=== PATIENT | male | born 1945 | race Caucasian/White ===

== ENCOUNTER 2016-07-07 13:03 | Inpatient (IN) | payer OTHER, MEDICARE ==
--- NOTE | 2016-07-07 13:18 | EDPHY ---
H & P Stated Complaint: Fatigue, abnomal labs-BUN/Creat. AFIB 07/06 Time Seen by Provider: 07/07/16 13:15 HPI/ROS: CHIEF COMPLAINT: Elevated creatinine HISTORY OF PRESENT ILLNESS: The patient is a 70 year old male with history of paroxysmal atrial fibrillation and hypertension, who was told to report to the emergency department by Dr. Ponce's office because of elevated creatinine today. The patient's previous creatinine was 1.3 (November 2015), today it was 3.1. The patient states he went into atrial fibrillation 2 days ago. He saw Dr. Ponce yesterday, who confirmed atrial fibrillation (the patient has a loop recorder in place). The patient received Metoprolol, which he took yesterday and this morning, with resolution of his afib. He had a recheck at Dr. Ponce's office today and was told he was no longer in atrial fibrillation. However, his lab work showed elevated creatinine. The patient notes trouble breathing recently. He was able to walk/run his usual 3 miles 2 days ago without dyspnea. Over the past month, he's noticed decreased strength and increased weakness. He denies lower extremity pain or swelling. No chest pain, cough, or nausea. Patient is anticoagulated on Eliquis. He is taking aldactone, lisinopril, and modafinil, among other medicaitons. Of note, the patient recently started a prescription drug that stimulates HGH. REVIEW OF SYSTEMS: A ten point review of systems was performed and is negative with the exception of the items mentioned in the HPI. Source: Patient - Personal History Current Tetanus/Diphtheria Vaccine: Unsure Current Tetanus Diphtheria and Acellular Pertussis (TDAP): Unsure - Medical/Surgical History Hx Asthma: No Hx Chronic Respiratory Disease: No Hx Diabetes: No Hx Cardiac Disease: Yes Hx Renal Disease: No Hx Cirrhosis: No Hx Alcoholism: No Hx HIV/AIDS: No Hx Splenectomy or Spleen Trauma: No Other PMH: 1. Hypertension. 2. Hypercholesterol. 3. Lung nodule-following by Dr. Fulton. 4. Atrial Fibrilliation, paroxysmal. 5. Sleep apnea. 6. Dyslipidemia. 7. Coronary Artery Disease, s/p cath 11/25 - Social History Smoking Status: Never smoked Additional Social History: The patient drinks a vodka drink every night. Nonsmoker. No drug use. . Works in finance. - Physical Exam Exam: General Appearance: Alert. Vital signs reviewed. HR 58-60. Eyes: Pupils equal and round, no conjunctival injection, no discharge. Anicteric. ENT, Mouth: Mucous membranes are moist, no oropharyngeal erythema or edema. Neck: No lymphadenopathy, supple. No JVD. Respiratory: Lungs are clear to auscultation; no wheezes, rales, or rhonchi. Cardiovascular: Regular rate and rhythm with distant heart sounds; no murmur, rub, or gallop. Gastrointestinal: Abdomen is soft and nontender. He has an umbilical hernia, not incarcerated. Skin: Warm and dry, no rashes on exposed skin, normal color. Back: Nontender to palpation over the thoracolumbar spine. No CVAT. Extremities: No lower extremity edema, no calf tenderness or swelling. Neurological: Alert and oriented. Moving all four extremities easily and equally. Psychiatric: Normal affect. Constitutional: Initial Vital Signs Temperature (C) 36.6 C 07/07/16 13:05 Heart Rate 58 L 07/07/16 13:05 Respiratory Rate 16 07/07/16 13:05 Blood Pressure 115/73 07/07/16 13:05 O2 Sat (%) 95 07/07/16 13:05 O2 Delivery Mode Room Air Allergies/Adverse Reactions: No Known Allergies Allergy (Verified 07/07/16 13:11) Home Medications: Medication Instructions Recorded ALPRAZolam [Xanax 0.5 MG (*)] 0.5 mg PO BID PRN 08/02/13 Fluticasone Nasal [Flonase Nasal 2 sprays EACHNARE DAILY PRN 07/12/14 [place]] Hydrocodone/Acetaminophen [[place] 1 each PO DAILY PRN 07/12/14 5/325 (*)] Atorvastatin Calcium [Lipitor 40 40 mg PO DAILY #30 tab 07/15/14 mg (*)] Amitriptyline HCl [Elavil 10 mg 10 mg PO HS 11/13/15 (*)] Carvedilol [Coreg (*)] 6.25 mg PO BIDMEAL 11/13/15 Lisinopril [Zestril 20 mg (*)] 20 mg PO DAILY 11/13/15 Tadalafil [Cialis] 20 mg PO DAILY PRN 08/03/16 Apixaban [Eliquis] 5 mg PO BID 07/07/16 Aspirin EC [Aspirin EC 81 mg (*)] 81 mg PO DAILY #0 tab 07/09/16 Medical Decision Making - Diagnostics EKG Interpretation: The 12 lead EKG was interpreted by myself. See hard copy and/or "tracemaster" electronic copy for interpretation: Sinus rhythm, first degree AV block, IVCD. Imaging: Study: X-ray of the chest was obtained. Results: NAPD, no obvious failure. Images were interpreted by the radiologist, Dr. Degroot. I viewed the images myself on the PACS system. ED Course/Re-evaluation: The patient is a 70 year old male, sent here by Dr. Duffy for elevated creatinine. The patient was recently in atrial fibrillation, this resolved after receiving metoprolol. Plan to repeat creatinine. Chest x-ray was ordered. I will check troponin as well. Repeat creatinine was 3.2. Troponin is elevated at .039. Chest x-ray is normal. 2:40 p.m.: I reevaluated the patient. He tells me he has been taking Sermorelin - GHRP6-GHRP2 intermittently since May. This is reportedly a human growth hormone stimulater. I do not know whether this medication can affect kidney function. He decreased his Lisinopril today from 2 tablets to 1 table per day, on the advice of his doctor. He is taking spironolactone. I suspect mild dehydration. He also takes aspirin, Lipitor, Coreg, ibuprofen prn and modafinil. He is taking spironolactone. I suspect mild dehydration. I think that dehydration and increase in lisinopril could explain his increased creatinine. With his recent atrial fibrillation he could have had disruption of blood flow to the kidneys. I do not find any evidence of infection. His troponin is very slightly elevated. I do not think that this represents ischemia. 3:00 p.m.: I spoke to the hospitalist, Dr. Singh, who accepts the patient for admission. Differential Diagnosis: I considered a differential diagnosis that includes but is not limited to chronic hypertension resulting in renal failure, medication effect, obstructive uropathy, acute coronary syndrome, infection and dehydration - Data Points Laboratory Results: Laboratory Results 07/07/16 13:34 07/07/16 13:34 Medications Given: Discontinued Medications Amitriptyline HCl (Elavil) 10 mg PO HS [facility] Stop: 01/03/17 20:59 Last Admin: 07/08/16 21:36 Dose: 10 mg Apixaban (Eliquis) 2.5 mg PO BID [facility] Stop: 01/05/17 10:59 Last Admin: 07/09/16 11:45 Dose: 2.5 mg Aspirin Buffered (Aspirin Ec) 81 mg PO DAILY [facility] Stop: 01/04/17 08:59 Last Admin: 07/09/16 09:14 Dose: 81 mg Atorvastatin Calcium (Lipitor) 40 mg PO DAILY [facility] Stop: 01/04/17 08:59 Last Admin: 07/09/16 09:14 Dose: 40 mg Carvedilol (Coreg) 6.25 mg PO BIDMEAL [facility] Stop: 01/03/17 17:59 Last Admin: 07/09/16 09:14 Dose: 6.25 mg Fluticasone Propionate (Flonase Nasal [place]) 2 sprays EACHNARE DAILY PRN PRN Reason: congestion Stop: 01/03/17 22:39 Last Admin: 07/08/16 21:36 Dose: 2 sprays Sodium Chloride (Ns) 500 mls @ 0 mls/hr IV ONCE ONE PRN Reason: Wide Open Stop: 07/07/16 15:49 Last Admin: 07/07/16 15:54 Dose: 500 mls Sodium Chloride (Ns) 1,000 mls @ 100 mls/hr IV CONT [facility] Stop: 01/03/17 16:44 Last Admin: 07/08/16 23:33 Dose: 1,000 mls Departure - Departure Disposition: [facility] Inpatient Acute Clinical Impression: Elevated serum creatinine Condition: Good Report Scribed for: Verna Romero Report Scribed by: Umu Kumar Date of Report: 07/07/16 Time of Report: 14:45 Physician Review and Approval Statement: 07/07/16 13:17 Portions of this note were transcribed by the medical scientific officer. I, Dr. Verna Romero, personally performed the history, physical exam, and medical decision- making; and confirmed the accuracy of the information in the transcribed note.
--- NOTE | 2016-07-07 13:23 | CPEKG ---
Heart Rate: 60 RR Interval: 1000 P-R Interval: 240 QRSD Interval: 134 QT Interval: 440 QTC Interval: 440 P [place]: 32 QRS [place]: -47 T Wave [place]: -61 EKG Severity - ABNORMAL ECG - EKG Impression: SINUS RHYTHM EKG Impression: FIRST DEGREE AV BLOCK EKG Impression: NONSPECIFIC IVCD WITH LAD Electronically Signed By: Venra Romero 07-Jul-2016 15:42:39
[2016-07-07 13:45] LABS: % IMMATURE GRANULYOCYTES 0.4 % (0.0-1.1); ABSOLUTE IMMATURE GRANULOCYTES 0.03 10^3/uL (0.00-0.10); ADD DIFF? NO; ADD MORPH? NO; ADD SCAN? NO; ATYPICAL LYMPHOCYTE FLAG 0 (0-99); FRAGMENT RBC FLAG 0 (0-99); HEMATOCRIT 41.9 % (40.0-51.0); HEMOGLOBIN 14.5 g/dL (13.7-17.5); LEFT SHIFT FLG 0 (0-99); LIPEMIA HEMOLYSIS FLAG 90 (0-99); MEAN CELL HEMOGLOBIN CONCENTR. 34.6 g/dL (32.4-36.7); MEAN CELL VOLUME 95.2 fL (81.5-99.8); MEAN PLATELET VOLUME 10.6 fL (8.7-11.7); PLATELET CLUMPS FLAG 0 (0-99); PLATELET COUNT 219 10^3/uL (150-400); RED CELL DISTRIBUTION WIDTH 12.8 % (11.5-15.2)
[2016-07-07 14:05] LABS: ANION GAP 11 mEq/L (8-16); CALCIUM 9.5 mg/dL (8.5-10.4); CARBON DIOXIDE 26 mEq/l (22-31); CHLORIDE 103 mEq/L (97-110); CREATININE 3.2 mg/dL (0.7-1.3); GLOMERULAR FILTRATION RATE 19; GLUCOSE 90 mg/dL (70-100); POTASSIUM 4.4 mEq/L (3.5-5.2); SODIUM 140 mEq/L (134-144)
[2016-07-07 14:16] LABS: TROPONIN I 0.039 ng/mL (0-0.034)
[2016-07-07] MEDS ORDERED: NS 500 ML IV ONE (15:48)
[2016-07-07] MEDS ORDERED: ALPRAZolam 0.25 MG TAB PO PRN (16:35)
[2016-07-07] MEDS ORDERED: ONDANSETRON 4 MG/2 ML VIAL IVP PRN (16:39)
[2016-07-07] MEDS ORDERED: ACETAMINOPHEN 325 MG TAB PO PRN (16:39)
[2016-07-07] MEDS: NS 1,000 ML IV SCH (16:58)
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
[2016-07-07] MEDS: CARVEDILOL 6.25 MG TAB PO SCH (18:02)
[2016-07-07] MEDS: AMITRIPTYLINE HCL 10 MG TAB PO SCH (20:11)
[2016-07-07] MEDS: FLUTICASONE NASAL 120 SPRAYS/16 GM MDI EACHNARE PRN (22:58)
[2016-07-08 05:27] LABS: % IMMATURE GRANULYOCYTES 0.4 % (0.0-1.1); ABSOLUTE IMMATURE GRANULOCYTES 0.02 10^3/uL (0.00-0.10); ADD DIFF? NO; ADD MORPH? NO; ADD SCAN? NO; ATYPICAL LYMPHOCYTE FLAG 10 (0-99); FRAGMENT RBC FLAG 0 (0-99); HEMATOCRIT 36.1 % (40.0-51.0); HEMOGLOBIN 12.2 g/dL (13.7-17.5); LEFT SHIFT FLG 0 (0-99); LIPEMIA HEMOLYSIS FLAG 90 (0-99); MEAN CELL HEMOGLOBIN 32.2 pg (27.9-34.1); MEAN CELL HEMOGLOBIN CONCENTR. 33.8 g/dL (32.4-36.7); MEAN CELL VOLUME 95.3 fL (81.5-99.8); MEAN PLATELET VOLUME 11.1 fL (8.7-11.7); PLATELET CLUMPS FLAG 10 (0-99); PLATELET COUNT 165 10^3/uL (150-400); RED BLOOD CELL COUNT 3.79 10^6/uL (4.40-6.38); RED CELL DISTRIBUTION WIDTH 12.7 % (11.5-15.2)
[2016-07-08 05:34] LABS: ANION GAP 8 mEq/L (8-16); CALCIUM 8.5 mg/dL (8.5-10.4); CARBON DIOXIDE 20 mEq/l (22-31); CHLORIDE 109 mEq/L (97-110); CHOLESTEROL 105 mg/dL (140-220); CHOLESTEROL/HDL RATIO 3.75 RATIO (1.00-4.97); CREATININE 2.3 mg/dL (0.7-1.3); GLOMERULAR FILTRATION RATE 28; GLUCOSE 86 mg/dL (70-100); HIGH DENSITY LIPOPROTEIN 28 mg/dL (40-65); LDL/HDL RATIO 1.75 RATIO (1.00-3.64); LOW DENSITY LIPOPROTEIN 49 mg/dL (80-100); NON-HIGH DENSITY LIPOPROTEIN 77 mg/dL (90-129); POTASSIUM 4.4 mEq/L (3.5-5.2); SODIUM 137 mEq/L (134-144); TRIGLYCERIDE 142 mg/dL (40-150); VERY LOW DENSITY LIPOPROTEINS 28 mg/dL (8-25)
--- NOTE | 2016-07-08 08:38 | PDCARCONS ---
Cardiology Consult Reason for Consult: History of atrial fibrillation abnormal EKG Chief Complaint: dizziness Requesting Physician: Dr Brandy Singh History of Present Illness: patient is a 70-year-old male history of paroxysmal atrial fibrillation admitted to the hospital with a rise in creatinine. I am asked by Dr. Singh to render an opinion regarding abnormal EKG, maintenance therapy for atrial fibrillation, hypertension, hyperlipidemia, and coronary artery disease. Patient has had no clinical cardiac events. He had a coronary angiogram this past year which revealed an occluded small posterior descending coronary artery fed by collaterals associated with normal left ventricular function. Diffuse luminal irregularities of the coronary tree were also identified. He has been aggressively managed with statin therapy. He has had no clinical cardiac events. In particular no history of heart failure, coronary disease, valvular heart disease. He has a history of intermittent atrial fibrillation diagnosed 3 and half years ago. He had a loop recorder placed at that time for episodes of loss of consciousness at the wheel. He was found to have paroxysmal atrial fibrillation. The most recent episode began last with an elevated heart rate. With serial monitoring he noticed a drop in blood pressure increasing in heart rate. He was seen Wednesday morning at the [facility]. He was started on amiodarone 400 mg three times daily. He converted to sinus rhythm last evening. Patient's blood pressure has been elevated. Most recently he had an increase in blood pressure medications including doubling of his lisinopril to bring his goal blood pressure down to the 120 range from 145 at baseline. On Mondays blood pressure was in the 70s. Routine metabolic assessment yesterday showed a creatinine that had doubled. And he was admitted to the hospital for further evaluation. Cardiac risk factors have included longstanding hypertension, hyperlipidemia. Patient has underlying severe obstructive and central sleep apnea managed by Dr. Hogan with CPAP. Cardiac review of systems today is negative for chest pain, shortness of breath , PND, orthopnea, syncope. He did have episode of dizziness with change in position yesterday. This morning he is feeling well. Outpatient medications: Ambulatory Orders ALPRAZolam [Xanax 0.5 MG (*)] 0.5 mg PO BID PRN 08/02/13 Fluticasone Nasal [Flonase Nasal [place]] 2 sprays EACHNARE DAILY PRN 07/12/14 Hydrocodone/Acetaminophen [[place] 5/325 (*)] 1 each PO DAILY PRN 07/12/14 Atorvastatin Calcium [Lipitor 40 mg (*)] 40 mg PO DAILY #30 tab 07/15/14 Amitriptyline HCl [Elavil 10 mg (*)] 10 mg PO HS 11/13/15 Carvedilol [Coreg (*)] 6.25 mg PO BIDMEAL 11/13/15 Lisinopril [Zestril 20 mg (*)] 20 mg PO DAILY 11/13/15 Spironolactone [Aldactone 25 MG (*)] 50 mg PO DAILY 11/13/15 Tadalafil [Cialis] 20 mg PO DAILY PRN 11/13/15 Apixaban [Eliquis] 5 mg PO BID 07/07/16 History Information - Allergies/Home Medication List Allergies/Adverse Reactions: No Known Allergies Allergy (Verified 07/07/16 13:11) Home Medications: ALPRAZolam [Xanax 0.5 MG (*)] 0.5 mg PO BID PRN 08/02/13 [Last Taken 07/06/16 21 :00] Fluticasone Nasal [Flonase Nasal [place]] 2 sprays EACHNARE DAILY PRN 07/12/14 [ Last Taken 07/06/16] Hydrocodone/Acetaminophen [[place] 5/325 (*)] 1 each PO DAILY PRN 07/12/14 [Last Taken 3 Days Ago] Amitriptyline HCl [Elavil 10 mg (*)] 10 mg PO HS 11/13/15 [Last Taken 07/06/16] Carvedilol [Coreg (*)] 6.25 mg PO BIDMEAL 11/13/15 [Last Taken 07/07/16] Lisinopril [Zestril 20 mg (*)] 20 mg PO DAILY 11/13/15 [Last Taken 07/07/16] Spironolactone [Aldactone 25 MG (*)] 50 mg PO DAILY 11/13/15 [Last Taken ] Tadalafil [Cialis] 20 mg PO DAILY PRN 11/13/15 [Last Taken 11/12/15 22:00] Apixaban [Eliquis] 5 mg PO BID 07/07/16 [Last Taken 07/07/16] I have personally reviewed and updated: family history, medical history, social history, surgical history - Past Medical History atrial fibrillation, coronary artery disease, hypertension, hyperlipidemia Additional medical history: Chronic singultus - Surgical History Reports: no pertinent surgical hx - Family History Positive for: non-pertinent - Social History Smoking Status: Never smoked Alcohol Use: Other (1 drink per night Wednesday through Wednesday 3-4 drinks over the weekend) Additional social history: patient has been under considerable stress the last year due to his company. He has not been walking regularly. Prior to year ago he was walking 20-60 miles per week. This has become quite sporadic. he has 2 families. He has reconnected with his 1st . Cardiac History - Cardiac History Cardiac Risk Factors: hypertension (>140/90), lipidemia, male JOEY Risk Evaluation known CAD(stenosis greater or eqaul to 50%): yes ASA use in past 7 days: no severe angina(greater or equal to 2 episodes in 24hrs): no EKG ST changes greater or equal to 0.5mm: no positive cardiac marker: yes Sex: Male Congestive Heart Failure History: No Hypertension History: Yes Stroke/TIA/Thromboembolism History: No Vascular Disease History: Yes Diabetes Mellitus: No Physical Exam Temp Pulse Resp BP Pulse Ox 36.4 C 66 18 109/69 95 07/08/16 04:09 07/08/16 04:09 07/08/16 04:09 07/08/16 04:09 07/08/16 04:09 Constitutional: no apparent distress, appears nourished Eyes: PERRL, anicteric sclera, EOMI, No pale conjunctiva Ears, Nose, Mouth, Throat: moist mucous membranes Cardiovascular: regular rate and rhythym, no murmur, rub, or gallop, pulses symmetric bilaterally, No systolic murmur, No irregularly irregular, No diastolic murmur, No JVD, No carotid bruit, No edema Peripheral Pulses: 2+: carotid (R), carotid (L), femoral (R), femoral (L), dorsalis-pedis (L) Respiratory: no respiratory distress, no rales or rhonchi Gastrointestinal: normoactive bowel sounds, soft, non-tender abdomen, distension , No hepatosplenomegally, No rebound Genitourinary: no bladder fullness, no bladder tenderness Skin: warm, normal color, no rashes or abrasions Musculoskeletal: full muscle strength, no muscle tenderness, normal joint ROM Neurologic: AAOx3, sensation intact bilaterally, No weakness Psychiatric: interacting appropriately, not anxious, not encephalopathic, thought process linear Lymph, Heme, Immunologic: no cervical LAD, no supraclavicular LAD Lab and Imaging 07/08/16 04:23 07/08/16 04:23 WBC 4.85 10^3/uL (3.80-9.50) 07/08/16 04:23 RBC 3.79 10^6/uL (4.40-6.38) L 07/08/16 04:23 Hgb 12.2 g/dL (13.7-17.5) L 07/08/16 04:23 Hct 36.1 % (40.0-51.0) L 07/08/16 04:23 MCV 95.3 fL (81.5-99.8) 07/08/16 04:23 MCH 32.2 pg (27.9-34.1) 07/08/16 04:23 MCHC 33.8 g/dL (32.4-36.7) 07/08/16 04:23 RDW 12.7 % (11.5-15.2) 07/08/16 04:23 Plt Count 165 10^3/uL (150-400) D 07/08/16 04:23 MPV 11.1 fL (8.7-11.7) 07/08/16 04:23 Neut % (Auto) 62.0 % (39.3-74.2) 07/08/16 04:23 Lymph % (Auto) 23.1 % (15.0-45.0) 07/08/16 04:23 [place] % (Auto) 12.0 % (4.5-13.0) 07/08/16 04:23 Eos % (Auto) 2.1 % (0.6-7.6) 07/08/16 04:23 Baso % (Auto) 0.4 % (0.3-1.7) 07/08/16 04:23 Nucleat RBC Rel Count 0.0 % (0.0-0.2) 07/08/16 04:23 Absolute Neuts (auto) 3.01 10^3/uL (1.70-6.50) 07/08/16 04:23 Absolute Lymphs (auto) 1.12 10^3/uL (1.00-3.00) 07/08/16 04:23 Absolute Monos (auto) 0.58 10^3/uL (0.30-0.80) 07/08/16 04:23 Absolute Eos (auto) 0.10 10^3/uL (0.03-0.40) 07/08/16 04:23 Absolute Basos (auto) 0.02 10^3/uL (0.02-0.10) 07/08/16 04:23 Absolute Nucleated RBC 0.00 10^3/uL (0-0.01) 07/08/16 04:23 Immature Gran % 0.4 % (0.0-1.1) 07/08/16 04:23 Immature Gran # 0.02 10^3/uL (0.00-0.10) 07/08/16 04:23 Sodium 137 mEq/L (134-144) 07/08/16 04:23 Potassium 4.4 mEq/L (3.5-5.2) 07/08/16 04:23 Chloride 109 mEq/L (97-110) 07/08/16 04:23 Carbon Dioxide 20 mEq/l (22-31) L D 07/08/16 04:23 Anion Gap 8 mEq/L (8-16) 07/08/16 04:23 BUN 38 mg/dL (7-23) H 07/08/16 04:23 Creatinine 2.3 mg/dL (0.7-1.3) H 07/08/16 04:23 Estimated GFR 28 07/08/16 04:23 Glucose 86 mg/dL (70-100) 07/08/16 04:23 Calcium 8.5 mg/dL (8.5-10.4) 07/08/16 04:23 Troponin I 0.033 ng/mL (0-0.034) 07/08/16 00:12 Triglycerides 142 mg/dL (40-150) 07/08/16 04:23 Cholesterol 105 mg/dL (140-220) L 07/08/16 04:23 Cholesterol Risk Factr 0.6 (0.2-1.0) 07/08/16 04:23 LDL Cholesterol, Calc 49 mg/dL (80-100) L 07/08/16 04:23 LDL Risk Factor 0.8 (0.2-1.0) 07/08/16 04:23 VLDL Cholesterol 28 mg/dL (8-25) H 07/08/16 04:23 Non-HDL Cholesterol 77 mg/dL (90-129) L 07/08/16 04:23 HDL Cholesterol 28 mg/dL (40-65) L 07/08/16 04:23 LDL/HDL Ratio 1.75 RATIO (1.00-3.64) 07/08/16 04:23 Cholesterol/HDL Ratio 3.75 RATIO (1.00-4.97) 07/08/16 04:23 Visualized and Interpreted Chest x-ray results: Yes Visualized and Interpreted EKG results: Yes EKG Interpretation: Positive for: T waves inversion A/P Assessment: Problem list: 1. Paroxysmal atrial fibrillation. 2. Coronary artery disease with occluded posterior descending coronary artery associated with normal LV function. 3. Hypertension. 4. Hyperlipidemia. 5. Pre renal azotemia. 6. Obstructive, central sleep apnea. 7. Obesity. Impression: 70-year-old male history of severe sleep apnea complicated by paroxysmal atrial fibrillation in the setting of hypertension, hyperlipidemia. Known coronary artery disease with known occlusion of the posterior descending coronary artery fed by collaterals associated with normal LV function. Recent episode of atrial fibrillation treated with amiodarone now in sinus rhythm. He is appropriately anticoagulated with Eliquis. Patient has known hypertension with an increase in medications recently including doubling of lisinopril in the setting of Aldactone blood pressure Wednesday in the 70s likely lead to pre renal azotemia with bump in creatinine. Abnormal EKG with T-wave inversions in the inferolateral leads may represent LVH with strain versus electrolyte abnormality versus ischemia related to rate-related atrial fibrillation in the setting of an occluded posterior descending coronary artery. Today he is hemodynamically stable with good vital signs. Creatinine is improving with IV hydration. Plan: 1. Continue chronic anticoagulation with Eliquis 5 mg a day. 2. Discontinue amiodarone with no indication for chronic rate or rhythm control at this time. 3. Echocardiogram for assessment of inferior wall and left ventricular wall. 4. Continue aggressive secondary prevention for coronary artery disease. 5. In light of renal insufficiency would discontinue spironolactone. Hold JULIANNA- inhibitor with return to chronic dose once creatinine at baseline. 6. Weight loss return to regular exercise program discussed. Review of Systems - Review of Systems Constitutional: other (weight gain). denies: chills, fever EENTM: no symptoms reported Respiratory: no symptoms reported Cardiac: no symptoms reported Gastrointestinal/Abdominal: no symptoms reported Genitourinary: no symptoms Musculoskelatal: no symptoms Skin: no symptoms Neurological: no symptoms Hematologic/Lymphatic: no symptoms reported Immunologic/allergic: no symptoms reported Past Medical History - Personal History Current Tetanus/Diphtheria Vaccine: Unsure Current Tetanus Diphtheria and Acellular Pertussis (TDAP): Unsure - Medical/Surgical History Hx Asthma: No Hx Chronic Respiratory Disease: No Hx Cardiac Disease: Yes Hx Diabetes: No Hx Renal Disease: No Hx Alcoholism: No Hx Cirrhosis: No Hx HIV/AIDS: No Hx Splenectomy or Spleen Trauma: No Other PMH: 1. Hypertension. 2. Hypercholesterol. 3. Lung nodule-following by Dr. Fulton. 4. Atrial Fibrilliation, paroxysmal. 5. Sleep apnea. 6. Dyslipidemia. 7. Coronary Artery Disease, s/p cath 11/25 - Social History Smoking Status: Never smoked
--- NOTE | 2016-07-08 09:23 | CPEKG ---
Heart Rate: 55 RR Interval: 1091 P-R Interval: 224 QRSD Interval: 134 QT Interval: 468 QTC Interval: 448 P Bittinger: 62 QRS Bittinger: -42 T Wave Bittinger: -36 EKG Severity - ABNORMAL ECG - EKG Impression: SINUS RHYTHM EKG Impression: FIRST DEGREE AV BLOCK EKG Impression: Incomplete left bundle branch block EKG Impression: No significant change from July 07, 2016 Electronically Signed By: Flavio Mcfarlane 08-Jul-2016 12:20:34
[2016-07-08] MEDS: ATORVASTATIN CALCIUM 40 MG TAB PO SCH (09:39)
[2016-07-08] MEDS: ASPIRIN EC 81 MG TAB PO SCH (09:40)
[2016-07-08] MEDS: CARVEDILOL 6.25 MG TAB PO SCH ×2 (09:40→17:57)
--- NOTE | 2016-07-08 10:44 | ECHO ---
[id number] + + [address] : : [place] [address] : : [phone] + Adult Echocardiographic Report + ---+ :Name: JERRELL BROWNING JStudy Date: 07/08/2016 08:33 AM : : Hospital Admission Number: [id number] Location: 215: :: 1945 Gender: Male Height: 72 in : :Age: 70 yrs Race: WH Weight: 229 lb : :Reason For Study: Eval LV Fx : : BSA: 2.3 meters2 : :History: CHF : + ---+ MMode/2D Measurements \T\ Calculations IVSd: 1.2 cm LVIDd: 5.0 cm FS: 33.4 % MV Diam: 3.3 cm LVPWd: 1.1 cm LVIDs: 3.3 cm EDV(Teich): 119.6 ml ESV(Teich): 45.7 ml EF(Teich): 61.8 % Ao root diam: 2.9 cm LVOT diam: 2.1 cm ACS: 1.9 cm LVOT area: 3.5 cm2 Normal Measurement Values: + + :LVIDd (3.5-5.7cm) IVSd (0.6-1.1cm) LVPWd (0.6-1.1cm) Aortic Root (2.0-3.7cm)Left Atrium (1.5-4.0cm): :LV Vol(d) (76-115ml) LV Vol(s) (29-48ml) Ejec Fraction (50-65%)PV Salo (0.6- 1.2m/s) TV Salo (0.4-1.0m/s) : :MV E Salo (0.8-1.0m/s)MV A Salo (0.3-1.0m/s)LVOT Salo (0.7-1.2m/s) Asc Ao Salo ( 0.9-1.8m/s) : + + Doppler Measurements \T\ Calculations MV E max salo: MV V2 max: Ao V2 max: LV V1 max: 113.0 cm/sec 112.0 cm/sec 152.0 cm/sec 83.9 cm/sec MV A max salo: MV max P.0 mmHg Ao max P.2 mmHgLV V1 max P.9 cm/sec MV V2 mean: Ao mean P.8 mmHg MV E/A: 2.5 61.2 cm/sec 4.3 mmHg LV V1 mean PG: MV mean P.0 mmHgAo V2 mean: 1.5 mmHg MV V2 VTI: 34.2 cm 95.0 cm/sec LV V1 mean: MV area (1 diam): Ao V2 VTI: 32.1 cm 55.6 cm/sec LV V1 VTI: 20.4 cm 8.6 cm2 FRANCHESKA(I,D): 2.2 cm2 MVA(VTI): 2.1 cm2 FRANCHESKA(V,D): 1.9 cm2 MV Flow area(1diam): 8.6 cm2 MR max salo: MR(RF 1 diam): SV(MV 1 diam): TR max salo: 489.6 cm/sec 10.8 % 292.5 ml 313.6 cm/sec MR max PG: SI(MV 1 diam): TR max P.0 mmHg 39.3 mmHg 129.6 ml/m2 RAP systole: SV(LVOT): 70.5 ml 5.0 mmHg RVSP(TR): 44.3 mmHg RF(MV,Ao)(1 diam): 0.30 RF(MV,LVOT)(1diam): 0.76 Left Ventricle The left ventricle is normal in size. There is normal left ventricular wall thickness. There is Doppler evidence for diastolic dysfunction. The left ventricular ejection fraction is normal. Ejection Fraction = 63%. No regional wall motion abnormalities noted. Right Ventricle The right ventricle is normal in size and function. Atria The left atrium is mild to moderately dilated. The right atrium is mildly dilated. Mitral Valve There is no mitral valve stenosis. There is mild to moderate mitral regurgitation. Tricuspid Valve Normal tricuspid valve. There is mild tricuspid regurgitation. Right ventricular systolic pressure is 45mmHg. Aortic Valve The aortic valve is normal in structure and function. There is no aortic stenosis. There is no aortic insufficiency. Pulmonic Valve The pulmonic valve is normal in structure and function. There is no pulmonic valvular regurgitation. Great Vessels The aortic root is normal size. Pericardium/Pleural There is no pericardial effusion. Conclusion A complete two-dimensional transthoracic echocardiogram was performed (2D, M-mode, Doppler and color flow Doppler). There is Doppler evidence for diastolic dysfunction. The left ventricular ejection fraction is normal. Ejection Fraction = 63%. The left atrium is mild to moderately dilated. There is mild to moderate mitral regurgitation. There is mild tricuspid regurgitation. Right ventricular systolic pressure is 45mmHg. The aortic valve is normal in structure and function. There is no pericardial effusion. Elevated filling pressures. Final Reading Physician: Rosanne Arzola signed on 07/08/2016 10:43 AM Ordering Physician: Carmelina Singh Performed By: Ari Escobedo, BRIANACS
[2016-07-08] MEDS: NS 1,000 ML IV SCH ×2 (13:59→23:33)
--- NOTE | 2016-07-08 15:41 | HOSPPROG ---
Hospitalist Progress Note Assessment/Plan: DIAGNOSES: -acute renal failure, hemodynamic origin multifactorial -acute episode of paroxysmal atrial fibrillation, rate controlled -history of known coronary atherosclerosis with occlusion of small PDA vessel and otherwise luminal irregularities -hypertension -obesity -chronic obstructive sleep apnea on CPAP PLANS: -I discussed the patient's situation with him and his at the bedside in detail. Their questions are answered -Eliquis and held with the moment due to renal failure but will resume that his renal failure resolves -Continue IV hydration -continue to hold Aldactone and lisinopril at this time; resume lisinopril once renal failure resolved -no further amiodarone at this time per Dr. Amor recommendation -resumed daily exercise which he had stopped somewhat recently -efforts at weight loss are discussed in detail SUBJECTIVE: No angina or other pains, no shortness of breath, no palpitations Eating well OBJECTIVE Vitals reviewed: Stable with normal temperature Retail Product Advisor, my review: Rate controlled atrial fibrillation Exam: alert oriented Obese skin warm dry color ok resps not labored lungs clear BSs heart irregular abd soft nondistended nontender, bowel sounds present limbs warm, no edema iv site ok Laboratory data: Creatinine improved to 2.3 with his baseline at 1.3 from December 2015 LDL cholesterol 49 Other labs stable Objective: Vital Signs Temp Pulse Resp BP Pulse Ox 36.7 C 56 L 14 115/54 L 91 L 07/08/16 11:52 07/08/16 11:52 07/08/16 11:52 07/08/16 11:52 07/08/16 11:52 Laboratory Results 07/08/16 04:23 07/08/16 04:23 07/07/16 07/08/16 07/09/16 06:59 06:59 06:59 Intake Total 360 Balance 360 ICD10 Worksheet Patient Problems: Problems Problem Status Onset Coronary artery disease Acute Elevated serum creatinine Acute Syncope Acute
[2016-07-08] MEDS: AMITRIPTYLINE HCL 10 MG TAB PO SCH (21:36)
[2016-07-08] MEDS: FLUTICASONE NASAL 120 SPRAYS/16 GM MDI EACHNARE PRN (21:36)
[2016-07-09 04:49] LABS: ANION GAP 11 mEq/L (8-16); CALCIUM 8.7 mg/dL (8.5-10.4); CARBON DIOXIDE 20 mEq/l (22-31); CHLORIDE 107 mEq/L (97-110); CREATININE 1.6 mg/dL (0.7-1.3); GLOMERULAR FILTRATION RATE 43; GLUCOSE 88 mg/dL (70-100); POTASSIUM 4.2 mEq/L (3.5-5.2); SODIUM 138 mEq/L (134-144)
[2016-07-09] MEDS: ATORVASTATIN CALCIUM 40 MG TAB PO SCH (09:14)
[2016-07-09] MEDS: CARVEDILOL 6.25 MG TAB PO SCH (09:14)
[2016-07-09] MEDS: ASPIRIN EC 81 MG TAB PO SCH (09:14)
[2016-07-09] MEDS ORDERED: APIXABAN 2.5 MG TAB PO SCH (11:00)
[2016-07-09 11:59] VITALS: BP 110/64; PULSE 51; RESP 18; TEMP 98.6; O2SAT 94
--- NOTE | 2016-07-09 14:42 | PDDCSUM ---
Discharge Summary Discharge Summary: DISCHARGE DIAGNOSES: CONSULTANTS: Dr. Ion Amor PROCEDURES: Echocardiogram HOSPITAL COURSE SUMMARY: This patient with chronic hypertension and atrial fibrillation was being followed up in clinic after some medication adjustments when he is found to have new onset acute renal failure with creatinine 3.2. This is likely due to a combination of some rapid atrial fibrillation along with increases and Aldactone and lisinopril doses. The patient was brought in the hospital and was found not to be in any heart failure and no signs of angina or ischemia. He was treated with hydration and with holding of his Aldactone and lisinopril. He recovered uneventfully and at this point his creatinine is down to 1.6 which is near his baseline of 1.3 from November of 2015. There been no other complications. At this point he is felt stable for discharge to home. The recommendation will be for him to go off of the Aldactone at this time and if he needs to for hypertension replace it with a non diuretic medication such as a calcium her beta-regine. In addition will can have him hold his lisinopril until rechecking his creatinine to test for stability next week. Is recommended that he have his creatinine rechecked again once he is established back on his lisinopril. I have instructed the patient in regard to these changes. He has a prescription for a basic metabolic panel to be done at [facility] next week. MEDICATION CHANGES: -Discontinuation of Aldactone -Hold lisinopril until repeat blood test with Dr. Adame's office next week FOLLOW-UP PLAN: Blood test next week for repeat creatinine through Dr. Banerjee office Clinic visit with Dr. tristan in 2 weeks Greater than 35 minutes bedside and care coordination time today
== END 2016-07-09 15:12 | disposition home or self-care (01) | DRG 684 ==
LOC: F2W 16:40
PROVIDERS: ADMIT Internal Medicine; ATTEND Internal Medicine
DX: N17.9 Acute kidney failure, unspecified (principal); I48.0 Paroxysmal atrial fibrillation; E78.00 Pure hypercholesterolemia, unspecified; G47.33 Obstructive sleep apnea (adult) (pediatric); I25.10 Atherosclerotic heart disease of native coronary artery without angina pectoris; N18.9 Chronic kidney disease, unspecified; I34.0 Nonrheumatic mitral (valve) insufficiency; E66.9 Obesity, unspecified; I12.9 Hypertensive chronic kidney disease with stage 1 through stage 4 chronic kidney disease, or unspecified chronic kidney disease

== ENCOUNTER → 2016-08-26 | Outpatient (CLI) | payer OTHER, MEDICARE | LOC: BMCIMAGING 07:20 | PROVIDERS: ATTEND Internal Medicine Cardiovascular Disease | DX: N28.9 Disorder of kidney and ureter, unspecified (principal); I25.10 Atherosclerotic heart disease of native coronary artery without angina pectoris; I48.91 Unspecified atrial fibrillation ==

== ENCOUNTER → 2017-02-19 | Outpatient (CLI) | payer OTHER, MEDICARE | LOC: BHFA 10:00 | PROVIDERS: ATTEND Internal Medicine Cardiovascular Disease | DX: I25.10 Atherosclerotic heart disease of native coronary artery without angina pectoris (principal); I48.91 Unspecified atrial fibrillation; I10 Essential (primary) hypertension ==

== ENCOUNTER → 2017-02-23 | Outpatient (CLI) | payer OTHER, MEDICARE | LOC: BHFA 08:30 | PROVIDERS: ATTEND Internal Medicine Cardiovascular Disease | DX: I25.10 Atherosclerotic heart disease of native coronary artery without angina pectoris (principal); I10 Essential (primary) hypertension ==

== ENCOUNTER → 2017-03-15 | Outpatient (CLI) | payer OTHER, MEDICARE | LOC: FIMAGING 07:31 | PROVIDERS: ATTEND Internal Medicine Cardiovascular Disease | DX: I25.10 Atherosclerotic heart disease of native coronary artery without angina pectoris (principal); I48.91 Unspecified atrial fibrillation; I10 Essential (primary) hypertension | CPT/HCPCS: 76770-PO ==

== ENCOUNTER → 2017-03-18 | Outpatient (CLI) | payer OTHER, MEDICARE | LOC: BHFA 09:00 | PROVIDERS: ATTEND Internal Medicine Cardiovascular Disease | DX: I25.10 Atherosclerotic heart disease of native coronary artery without angina pectoris (principal); I10 Essential (primary) hypertension | CPT/HCPCS: 78452; 93017; A9500; J2785 ==

== ENCOUNTER 2018-01-31 06:09 | Day surgery (SDC) | payer OTHER, MEDICARE ==
[2018-01-31] MEDS ORDERED: NS 500 ML IV ONE (06:11)
[2018-01-31] MEDS ORDERED: ATROPINE SULFATE 1 MG/10 ML SYR IVP ONE (06:11)
[2018-01-31] MEDS ORDERED: fentaNYL 100 MCG/2 ML INJ IVP ONE (06:11)
[2018-01-31] MEDS ORDERED: MIDAZOLAM 2 MG/2 ML VIAL IVP ONE (06:11)
[2018-01-31 06:52] LABS: INR 1.25 (0.83-1.16); PROTIME(PATIENT) 15.9 SEC (12.0-15.0)
[2018-01-31] MEDS ORDERED: PROPOFOL 200 MG/20 ML VIAL ONE (07:13)
--- NOTE | 2018-01-31 07:16 | POSTANESTH ---
Post Anesthetic Evaluation Cardiovascular Status: Normal, Stable Respiratory Status: Normal, Stable Level of Consciousness/Mental Status: Can Participate in Eval, Mildly Sleepy, Arousable Pain Control: Adequate, Prn Tx Ordered Nausea/Vomiting Control: Adequate, Prn Tx Ordered Complications Possibly Related to Anesthesia: None Noted
--- NOTE | 2018-01-31 07:16 | PDANEPAE ---
ANE History of Present Illness a. flutter ANE Past Medical History - Cardiovascular History Hx Hypertension: Yes Hx Arrhythmias: Yes Hx Chest Pain: No Hx Coronary Artery / Peripheral Vascular Disease: Yes Hx CHF / Valvular Disease: No Hx Palpitations: No - Pulmonary History Hx Asthma/Reactive Airway Disease: No Hx Recent Upper Respiratory Infection: No Hx Oxygen in Use at Home: No Hx Sleep Apnea: Yes - Endocrine History Hx Diabetes: No Hypothyroid: No Hyperthyroid: No Obesity: yes - Chronic Pain History Chronic Pain: Yes (back, takes hydrocodeone approx. 6 times a month) ANE Review of Systems Review of systems is: negative Review of Systems: - Exercise capacity METS (RN): 4 METS ANE Patient History - Allergies Allergies/Adverse Reactions: No Known Allergies Allergy (Verified 07/07/16 13:11) - Home Medications Home medications: home medication list seen and reviewed Home Medications: ALPRAZolam [Xanax 0.5 MG (*)] 0.5 mg PO BID PRN 08/02/13 [Last Taken 07/06/16 21 :00] Fluticasone Nasal [Flonase Nasal [place]] 2 sprays EACHNARE DAILY PRN 07/12/14 [ Last Taken 07/06/16] Hydrocodone/Acetaminophen [[place] 5/325 (*)] 1 each PO DAILY PRN 07/12/14 [Last Taken 3 Days Ago ~07/04/16] Amitriptyline HCl [Elavil 10 mg (*)] 10 mg PO HS 11/13/15 [Last Taken 07/06/16] Carvedilol [Coreg (*)] 6.25 mg PO BIDMEAL 11/13/15 [Last Taken 07/07/16] Lisinopril [Zestril 20 mg (*)] 20 mg PO DAILY 11/13/15 [Last Taken 07/07/16] Tadalafil [Cialis] 20 mg PO DAILY PRN 11/13/15 [Last Taken 11/12/15 22:00] Apixaban [Eliquis] 5 mg PO BID 07/07/16 [Last Taken 07/07/16] - Anes Hx Anes Hx: no prior problems - Smoking Hx Smoking Status: Never smoked ANE Labs/Vital Signs - Labs Result Diagrams: 01/31/18 06:30 ANE Physical Exam - Airway Neck exam: FROM Mallampati Score: Class 2 Mouth exam: normal dental/mouth exam - Pulmonary Pulmonary: no respiratory distress - Cardiovascular Cardiovascular: regular rate and rhythym - ASA Status ASA Status: III ANE Anesthesia Plan Anesthesia Plan: GA with mask
--- NOTE | 2018-01-31 07:25 | PDPROPOC ---
Sedation Plan of Care Sedation Plan of Care: mental status noted, patient educated of risks, benefits , alternatives, patient can tolerate sedation ASA Classification: ASA 2 Planned drugs: other Mallampati Score: Class 2 Mallampati Reference Image: Patient passed 3-3-2 rule?: Yes
--- NOTE | 2018-01-31 07:25 | PDHPUP ---
History & Physical Update H&P update statement: This history and physical update is based on an assessment of the patient which was completed after admission or registration (within 24 hours), but prior to the surgery/procedure. H&P update: H&P reviewed & patient examined, no change in patient's condition since H&P completed
--- NOTE | 2018-01-31 10:38 | CPIP ---
DATE OF PROCEDURE: 01/31/2018 PROCEDURE PERFORMED: Cardioversion. INDICATION FOR PROCEDURE: Symptomatic atrial flutter. DESCRIPTION OF PROCEDURE: As per [facility] protocol the patient was brought to the [facility] where baseline ECG was obtained which showed atrial flutter 3:1 with a rate of 60. Anesthesia performed sedation an d the patient was cardioverted successfully with synchronized 200 joules. After cardioversion, the p atient was in sinus rhythm at a rate of 64. Blood pressure was stable throughout the procedure at a baseline of 126/70 and postprocedure 130/70. Of note, the patient has been compliant with his Eliqui s and had been documented in the medical chart for the last 30 days. The patient will be discharged home this morning to follow up with me in the office in 1 week's time. /[id number]/MODL
--- NOTE | 2018-02-03 09:01 | CPEKG ---
Test Reason : OPEN Blood Pressure : / mmHG Vent. Rate : 055 BPM Atrial Rate : 221 BPM P-R Int : 232 ms QRS Dur : 138 ms QT Int : 488 ms P-R-T Axes : 082 -53 -23 degrees QTc Int : 467 ms Predominant 4:1 AV block Left bundle branch block Atrial flutter has replaced normal sinus rhythm Confirmed by Jason Mace [id number]) on 02/03/2018 9:00:30 AM Referred By: Confirmed By:Jason Mace
--- NOTE | 2018-02-03 09:02 | CPEKG ---
Test Reason : OPEN Blood Pressure : / mmHG Vent. Rate : 059 BPM Atrial Rate : 059 BPM P-R Int : 252 ms QRS Dur : 138 ms QT Int : 455 ms P-R-T Axes : 056 -47 -29 degrees QTc Int : 451 ms Sinus rhythm Prolonged MT interval Probable left atrial enlargement Left bundle branch block Normal sinus rhythm has replaced atrial flutter on prior ECG Confirmed by Jason Mace [id number] on 02/03/2018 9:01:46 AM Referred By: Confirmed By:Jason Mace
== END 2018-01-31 08:43 | disposition home or self-care (01) ==
LOC: FCATH 06:09
PROVIDERS: ATTEND Internal Medicine Cardiovascular Disease
PROC: 5A2204Z Restoration of Cardiac Rhythm, Single (ICD-10-PCS; principal; 2018-01-31)
DX: I48.92 Unspecified atrial flutter (principal); I48.91 Unspecified atrial fibrillation; R06.00 Dyspnea, unspecified; I44.7 Left bundle-branch block, unspecified; I10 Essential (primary) hypertension; E78.5 Hyperlipidemia, unspecified; I25.10 Atherosclerotic heart disease of native coronary artery without angina pectoris; Z79.01 Long term (current) use of anticoagulants
CPT/HCPCS: J0461; J2704

== ENCOUNTER → 2018-06-06 | Outpatient (CLI) | payer OTHER, MEDICARE | LOC: BMCIMAGING 14:31 | PROVIDERS: ATTEND Internal Medicine | DX: J44.9 Chronic obstructive pulmonary disease, unspecified (principal) ==

== ENCOUNTER → 2018-06-07 | Outpatient (CLI) | payer OTHER, MEDICARE | LOC: BMCIMAGING 14:55 | PROVIDERS: ATTEND Internal Medicine | DX: S42.002A Fracture of unspecified part of left clavicle, initial encounter for closed fracture (principal) | CPT/HCPCS: G0103 ==